=== PATIENT | male | born 1980 | race Caucasian/White ===

== ENCOUNTER → 2017-03-26 | Outpatient (CLI) | payer OTHER ==
--- NOTE | ~2017-03-26 | PUL ---
PATIENT'S NAME: ALEKSEY JO [facility] AGE: 36 Y [address] ROOM: [place] [id number] LOCATION: [facility] ADMIT DATE: 03/26/2017 Pulmonary DISCHARGE DATE: FAMILY PHYSICIAN: PHYSICIAN, NO ATTENDING PHYSICIAN: MICAH FULTON NAME OF PROCEDURE: Home sleep test DATE OF PROCEDURE: 03/26/17 TECH: [facility] SUMMARY: Patient underwent home sleep testing using a type III device and was studied for 6 hours. In that time there were 110 apneas and 32 hypopneas for an apnea/hypopnea index moderately to borderline severely elevated at 24 events per hour. Oxygen saturations ranged from 78%-93%. Heart rate ranged from 60-103 beats per minute. IMPRESSION: Moderate to severe obstructive sleep apnea. PLAN: Would consider PAP therapy either as an auto titrating CPAP or PAP therapy titrated in a facility based study. The patient will receive results from the ordering provider. MD AYLA ZEE/ /[id number] dtt: 04/07/17 1010 , Michael Hinojosa dtd: 04/01/17 1203
== END | disposition disaster alternative care site (69) ==
LOC: GSLP 03-03 08:55
DX: G47.33 Obstructive sleep apnea (adult) (pediatric) (principal); G47.10 Hypersomnia, unspecified
CPT/HCPCS: G0399